=== PATIENT | male | born 1980 ===

== ENCOUNTER 2024-12-08 14:40 | Emergency (ER) | payer OTHER ==
[~2024-12-08] VITALS: Ht 177.8 cm; Wt 86.2 kg
[2024-12-08] MEDS ORDERED: Ondansetron HCl 2 MG / ML 2ML Vial IV ONE ×2 (14:50→20:40)
[2024-12-08] MEDS ORDERED: Lidocaine 2% Viscous Soln 15 ML UDC PO ONE (14:50)
[2024-12-08] MEDS ORDERED: Ketorolac Tromethamine 15mg Vial IV ONE (14:50)
[2024-12-08 15:09] LABS: BASOPHILS ABSOLUTE AUTO 0.04 K/mm3 (0.00-0.23); BASOPHILS PERCENT AUTO 0 % (0-2); EOSINOPHILS ABSOLUTE AUTO 0.04 K/mm3 (0.00-0.68); EOSINOPHILS PERCENT AUTO 0 % (0-6); Hematocrit 46.2 % (37.0-53.0); Hemoglobin 16.4 g/dL (13.5-17.5); IMMATURE GRAN ABSOLUTE AUTO 0.01 K/mm3 (0.00-0.10); IMMATURE GRAN PERCENT AUTO 0 % (0-1); LYMPHOCYTES ABSOLUTE AUTO 1.09 K/mm3 (0.84-5.20); LYMPHOCYTES PERCENT AUTO 12 % (21-46); MONOCYTES ABSOLUTE AUTO 0.44 K/mm3 (0.16-1.47); MONOCYTES PERCENT AUTO 5 % (4-13); Mean Corpuscular HGB Conc 35.5 g/dL (31.5-36.5); Mean Corpuscular Volume 86 fL (80-100); NEUTROPHILS ABSOLUTE AUTO 7.34 K/mm3 (1.96-9.15); NEUTROPHILS PERCENT AUTO 82 % (41-73); NRBC ABSOLUTE 0.00 K/mm3 (0.00-0.02); NRBC Auto 0.0 /100 WBC (0.0-0.2); Platelet Count 248 K/mm3 (150-400); RDW Coefficient Variation 13.0 % (11.7-14.2); RDW Standard Deviation 40.4 fL (35.1-46.3)
[2024-12-08 15:44] LABS: Alanine Aminotransfer (ALT/SGP 567 U/L (12-78); Albumin, Blood 4.0 g/dL (3.4-5.0); Albumin/Globulin Ratio 1.3 (0.8-1.8); Anion Gap 9 mmol/L (3-11); Aspartate Aminotrans (AST/SGOT 385 U/L (12-37); Bilirubin, Total 2.4 mg/dL (0.1-1.0); Blood Urea Nitrogen 8 mg/dL (8-24); CO2, Blood 28 mmol/L (21-32); Calcium, Blood 9.8 mg/dL (8.5-10.1); Chloride, Blood 100 mmol/L (98-108); Creatinine, Blood 0.89 mg/dL (0.60-1.20); Globulin, Blood 3.0 g/dL (2.2-4.0); Glucose, Blood 117 mg/dL (70-99); Potassium, Blood 3.4 mmol/L (3.5-5.5); Sodium, Blood 134 mmol/L (136-145); Total Protein, Blood 7.0 g/dL (6.4-8.2)
[2024-12-08] MEDS ORDERED: HYDROmorphone HCl/Pf 1MG SYR IV ONE ×2 (16:45→20:40)
[2024-12-08] MEDS ORDERED: NS 1,000 ML IV SCH ×2 (16:45→18:55)
== END 2024-12-08 20:55 | disposition short-term general hospital (02) ==
LOC: ER 14:40
PROVIDERS: Physician Assistant
DX: K85.90 Acute pancreatitis without necrosis or infection, unspecified (principal); K80.20 Calculus of gallbladder without cholecystitis without obstruction; Z88.2 Allergy status to sulfonamides
CPT/HCPCS: 74177; 76705; 80053; 83690; 84484; 85025; 93005; 93010; 96361; 96374; 96375; 96376; 99285-25; A9270; J1171; J1885; J2405; J7030; Q9967